=== PATIENT | female | born 1975 | race Two or more races ===

== ENCOUNTER 2019-08-08 22:12 | Emergency (ER) | payer OTHER ==
[2019-08-08 22:17] VITALS: TEMP 98.1; BMI 23.0
[2019-08-08] MEDS ORDERED: LACTATED RINGERS SOLUTION 1000 ML INFUS.BAG IV ONE (23:34)
[2019-08-09 00:37] LABS: EOS % 1.9 % (0-4.5); HEMATOCRIT 34.5 % (32.4-45.2); HEMOGLOBIN 11.1 GM/dL (10.7-15.3); LYMPH % 34.8 % (8-40); MCH 28.4 pg (25.7-33.7); MCHC 32.3 g/dl (32.0-36.0); MEAN CELL VOLUME 87.7 fl (80-96); MEAN PLT VOLUME 8.8 fl (7.5-11.1); MONO % 11.7 % (3.8-10.2); NEUT % 50.6 % (42.8-82.8); PLATELET COUNT 229 K/MM3 (134-434); RBC 3.93 M/mm3 (3.60-5.2); RDW 16.4 % (11.6-15.6); WHITE BLOOD COUNT 5.3 K/mm3 (4.0-10.0)
[2019-08-09 01:01] LABS: ALBUMIN 3.6 g/dl (3.4-5.0); BILIRUBIN,TOTAL 0.2 mg/dL (0.2-1); BLOOD UREA NITROGEN 22.2 mg/dL (7-18); CALCIUM 9.2 mg/dL (8.5-10.1); CREATININE 0.8 mg/dL (0.55-1.3); POTASSIUM 3.7 mmol/L (3.5-5.1); TOT PROT 7.4 g/dl (6.4-8.2)
--- NOTE | 2019-08-09 01:21 | PDOC ---
History of Present Illness - General History Source: Patient Exam Limitations: Clinical Condition - History of Present Illness Initial Comments: 08/09/19 01:23 Patient with history of menorrhagia present with complaint of heavy menstrual bleeding since yesterday soaking 6 pads a day which has lightened up today. Patient reporting she feels dehydrated and feels she might have anemia. Denies chest pain, shortness of breath, palpitation, dizziness, weakness. Denies any other symptoms. LMP began yesterday Is this a multiple visit Asthma Patient?: No Timing/Duration: 24 hours <Merritt Chapmanes - Last Filed: 08/09/19 01:23> <Stan Cowan - Last Filed: 08/09/19 02:33> - General Chief Complaint: Weakness Stated Complaint: WEEKNESS Time Seen by Provider: 08/08/19 23:32 Past History - Past Medical History COPD: No GI Disorders: Yes (ACID REFLUX) - Immunization History Td Vaccination: Yes Immunization Up to Date: Yes - Psycho Social/Smoking Cessation Hx Smoking Status: No Smoking History: Never smoked Years of Tobacco Use: 0 Have you smoked in the past 12 months: No Number of Cigarettes Smoked Daily: 0 Cigars Per Day: 0 Hx Alcohol Use: No Drug/Substance Use Hx: No Substance Use Type: None <Merritt Chapman Peter - Last Filed: 08/09/19 01:23> <Stan Cowan - Last Filed: 08/09/19 02:33> - Past Medical History Allergies/Adverse Reactions: Allergies Allergy/AdvReac Type Severity Reaction Status Date / Time No Known Allergies Allergy Verified 08/08/19 22:17 Home Medications: Ambulatory Orders Omeprazole Magnesium [Prilosec] 80 mg PO DAILY 07/18/16 Review of Systems - Review of Systems Able to Perform ROS?: Yes Is the patient limited Syriac proficient: No Constitutional: No: Chills, Fever, Malaise HEENTM: No: Symptoms Reported, See HPI, Eye Pain, Blurred Vision, Tearing, Recent change in vision, Double Vision, Cataracts, Ear Pain, Ocular Prothesis, Ear Discharge, Nose Pain, Nose Congestion, Tinnitus, Nose Bleeding, Hearing Loss , Throat Pain, Throat Swelling, Mouth Pain, Dental Problems, Difficulty Swallowing, Mouth Swelling, Other Respiratory: No: Symptoms reported, See HPI, Cough, Orthopnea, Shortness of Breath, SOB with Exertion, SOB at Rest, Stridor, Wheezing, Productive cough, Hemoptysis, Other Cardiac (ROS): No: Symptoms Reported, See HPI, Chest Pain, Edema, Irregular Heart Rate, Lightheadedness, Palpitations, Syncope, Chest Tightness, Other ABD/GI: No: Symptoms Reported, Constipated, Diarrhea, Nausea, Vomiting, Abdominal cramping : No: Symptoms Reported, Burning, Dysuria, Discharge, Frequency, Hematuria, Urgency Musculoskeletal: No: Symptoms Reported Neurological: No: Symptoms reported, Headache, Weakness, Dizziness All Other Systems: Reviewed and Negative <Merritt Chapman - Last Filed: 08/09/19 01:23> *Physical Exam - Vital Signs Last Vital Signs Temp Pulse Resp BP Pulse Ox 98.1 F 84 18 114/57 L 100 08/08/19 22:14 08/08/19 22:14 08/08/19 22:14 08/08/19 22:14 08/08/19 22:14 - Physical Exam 08/09/19 01:26 GENERAL: Well developed, well nourished. Awake and alert. No acute distress. HEENT: Normocephalic, atraumatic. PERRLA, EOMI. No conjunctival pallor. Sclera are non-icteric. Moist mucous membranes. Oropharynx is clear. NECK: Supple. Full ROM. CARDIOVASCULAR: Regular rate and rhythm. No murmurs, rubs, or gallops. Distal pulses are 2+ and symmetric. PULMONARY: No evidence of respiratory distress. Lungs clear to auscultation bilaterally. No wheezing, rales or rhonchi. ABDOMINAL: Soft. Non-tender. Non-distended. No rebound or guarding. No organomegaly. Normoactive bowel sounds. MUSCULOSKELETAL Normal range of motion at all joints. SKIN: Warm and dry. Normal capillary refill. No rashes. No jaundice. No cyanosis NEUROLOGICAL: Alert, awake, appropriate. Gait is normal without ataxia. PSYCHIATRIC: Cooperative. Good eye contact. Appropriate mood General Appearance: Yes: Nourished, Appropriately Dressed. No: Apparent Distress <Merritt Chapman - Last Filed: 08/09/19 01:23> - Vital Signs Last Vital Signs Temp Pulse Resp BP Pulse Ox 98.1 F 80 17 117/62 100 08/08/19 22:14 08/09/19 01:58 08/09/19 01:58 08/09/19 01:58 08/09/19 01:58 <Stan Cowan - Last Filed: 08/09/19 02:33> ED Treatment Course - LABORATORY CBC & Chemistry Diagram: 08/09/19 00:00 08/09/19 00:00 - ADDITIONAL ORDERS Additional order review: Laboratory Results 08/09/19 00:00 Sodium 139 Potassium 3.7 Chloride 105 Carbon Dioxide 27 Anion Gap 6 L BUN 22.2 H Creatinine 0.8 Est GFR (CKD-EPI)AfAm 103.92 Est GFR (CKD-EPI)NonAf 89.66 Random Glucose 88 Calcium 9.2 Total Bilirubin 0.2 AST 15 ALT 17 Alkaline Phosphatase 69 Total Protein 7.4 Albumin 3.6 08/09/19 00:00 RBC 3.93 MCV 87.7 MCHC 32.3 RDW 16.4 H MPV 8.8 Neutrophils % 50.6 Lymphocytes % 34.8 Monocytes % 11.7 H Eosinophils % 1.9 Basophils % 1.0 - Medications Given in the ED: ED Medications Discontinued Medications Generic Name Dose Route Start Last Admin Trade Name Freq PRN Reason Stop Dose Admin Lactated Ringer's 1,000 ml 08/08/19 23:34 08/09/19 00:12 Lactated Ringers Solution IV 08/08/19 23:35 1,000 ml ONCE ONE Administration <AdelaMerritt Peter - Last Filed: 08/09/19 01:23> - LABORATORY CBC & Chemistry Diagram: 08/09/19 00:00 08/09/19 00:00 - ADDITIONAL ORDERS Additional order review: Laboratory Results 08/09/19 08/09/19 00:00 00:00 Sodium 139 Potassium 3.7 Chloride 105 Carbon Dioxide 27 Anion Gap 6 L BUN 22.2 H Creatinine 0.8 Est GFR (CKD-EPI)AfAm 103.92 Est GFR (CKD-EPI)NonAf 89.66 Random Glucose 88 Calcium 9.2 Total Bilirubin 0.2 AST 15 ALT 17 Alkaline Phosphatase 69 Total Protein 7.4 Albumin 3.6 Serum , Qual Negative 08/09/19 00:00 RBC 3.93 MCV 87.7 MCHC 32.3 RDW 16.4 H MPV 8.8 Neutrophils % 50.6 Lymphocytes % 34.8 Monocytes % 11.7 H Eosinophils % 1.9 Basophils % 1.0 - Medications Given in the ED: ED Medications Discontinued Medications Generic Name Dose Route Start Last Admin Trade Name Guille PRRenae Reason Stop Dose Admin Lactated Ringer's 1,000 ml 08/08/19 23:34 08/09/19 00:12 Lactated Ringers Solution IV 08/08/19 23:35 1,000 ml ONCE ONE Administration <Stan Cowan - Last Filed: 08/09/19 02:33> Medical Decision Making - Medical Decision Making 08/09/19 01:25 Patient with history of menorrhagia present with complaint of heavy menstrual bleeding since yesterday soaking 6 pads a day which has lightened up today. Patient reporting she feels dehydrated and feels she might have anemia. Denies chest pain, shortness of breath, palpitation, dizziness, weakness. Denies any other symptoms. LMP began yesterday Clinical exam unremarkable with normal exam. Patient in no acute distress. CBC lab done shows no anemia. IV hydration on normal saline 1 L given patient. Patient reported feeling better now. Patient stable for discharge with advised to follow-up with [employer] for menorrhagia management <Merritt Chapman - Last Filed: 08/09/19 01:23> - Medical Decision Making The patient was seen and evaluated in conjunction with HERMAN Chapman under my direct supervision, ancillary studies were reviewed. I agree with the plan as outlined by HERMAN Chapman. <Stan Cowan - Last Filed: 08/09/19 02:33> Discharge - Discharge Information Problems reviewed: Yes - Admission No <Merritt Chapman - Last Filed: 08/09/19 01:23> <Stan Cowan - Last Filed: 08/09/19 02:33> - Discharge Information Clinical Impression/Diagnosis: Menorrhagia Qualifiers: Menorrahagia type: with regular cycle Qualified Code(s): N92.0 - Excessive and frequent menstruation with regular cycle Condition: Stable Disposition: HOME - Follow up/Referral Referrals: Catrina Hedrick [Primary Care Provider] - - Patient Discharge Instructions Patient Printed Discharge Instructions: DI for Menorrhagia Additional Instructions: Your blood work was normal and shows no anemia. Follow-up with your [employer] to discuss your excessive menstrual bleeding issue. Come back to emergency room if dizziness, blurry vision, shortness of breath, palpitations or weakness - Post Discharge Activity
[2019-08-09 02:00] VITALS: BP 117/62; PULSE 80
== END 2019-08-09 02:01 | disposition home or self-care (01) ==
LOC: JER 22:12
DX: N92.0 Excessive and frequent menstruation with regular cycle (principal)
CPT/HCPCS: 36415; 80053; 84703; 85025; 86850; 86900; 86901; 99283-25